=== PATIENT | female | born 1945 | race Caucasian/White ===

== ENCOUNTER 2021-10-11 11:42 | Emergency (ER) | payer OTHER, MEDICARE ==
[~2021-10-11 11:42] MED LIST: CIPRO500 MG PO
== END 2021-10-11 16:19 | disposition home or self-care (01) ==
LOC: FER 11:42
DX: S13.4XXA Sprain of ligaments of cervical spine, initial encounter (principal); S00.93XA Contusion of unspecified part of head, initial encounter; Z88.0 Allergy status to penicillin; Z88.6 Allergy status to analgesic agent; V49.50XA Passenger injured in collision with unspecified motor vehicles in traffic accident, initial encounter
CPT/HCPCS: 70450; 72125